=== PATIENT | male | born 1955 | race Caucasian/White ===

== ENCOUNTER 2019-08-03 08:21 | Day surgery (SDC) | payer BC ==
--- NOTE | 2019-07-24 10:02 | HP ---
HISTORY AND PHYSICAL: DATE OF ADMISSION: 08/03/19 [facility] DATE OF OFFICE VISIT: 07/23/19 ATTENDING PHYSICIAN: Dr. Beth Linda.* (DICTATED BY CHUCHO TAVERAS) PROCEDURE: Right wrist removal of accessory ossicle. CHIEF COMPLAINT: Right wrist pain. HISTORY OF PRESENT ILLNESS: Vu is a 63-year-old male, who started having wrist pain back in February. No specific trauma. He rates the pain as a 4/10. He has tried activity modification. He has tried bracing and physical therapy. He had a CT scan, which did show signs of tendinitis near the accessory ossicle. He has failed conservative treatment and has elected to proceed with surgery. He is scheduled to undergo right wrist removal of the accessory ossicle. This is scheduled on 08/03/[address] Linda. PAST MEDICAL HISTORY: Prostate cancer. PAST SURGICAL HISTORY: Knee arthroscopy, shoulder surgery, hernia repair, prostatectomy, and vasectomy. MEDICATIONS: 1. Depakote 500 mg. 2. Wellbutrin SR. ALLERGIES: No known drug allergies. FAMILY HISTORY: Lung cancer in father. SOCIAL HISTORY: Lives with his spouse. He consumes alcohol and denies tobacco use. REVIEW OF SYSTEMS: A complete 14-point review of systems was obtained. Other than HPI, all other systems are negative and noncontributory including negative for any prior problems with anesthesia. PHYSICAL EXAMINATION GENERAL: Awake, alert, and oriented, in no acute distress. HEENT: Head is normocephalic, atraumatic. NECK: Supple with no palpable lymph nodes. LUNGS: Clear to auscultation bilaterally. No wheezes, rales, or rhonchi. HEART: Regular rate and rhythm. S1, S2. No murmurs, rubs, or gallops. EXTREMITIES: Right upper extremity: There is swelling near the dorsal radial carpal joint as well as the third MP joint. He has decreased range of motion in the right wrist especially in flexion and extension. He has tenderness on the radial and volar aspect of the wrist. Sensation is intact to light touch distally. 2+ radial pulse. SKIN: Intact without rashes or lesions. IMPRESSION: Right wrist tendinitis from an accessory ossicle. PLAN/RECOMMENDATIONS: He is scheduled to undergo right wrist removal of accessory ossicle on 08/03/[address] Linda. A prescription for tramadol will be sent to the patient's pharmacy for postoperative pain management. He will follow up in the office in 10 to 14 days postoperatively. CHUCHO TAVERAS [id number]/[facility] #: [id number] MTDD
[~2019-08-03 08:21] MED LIST: Buffered Lidocaine 1% SYRIN* 1 ML/SYRINGE INTRADERM ONE; Lactated Ringers 1000 ML Bag* 1,000 ML IV SCH
[2019-08-03] MEDS ORDERED: Lidocaine 2% PF * 5 ML VIAL ONE (09:46)
[2019-08-03] MEDS ORDERED: Midazolam* 1 MG/ML 2 ML VIAL (2 MG) ONE (09:47)
[2019-08-03] MEDS ORDERED: Lidocaine 1% INJ* 10 MG/ML 30 ML SDV ONE (09:56)
[2019-08-03] MEDS ORDERED: Mepivacaine 2% MPF (20 MG/ML)* 20 ML MPF ONE (10:01)
[2019-08-03] MEDS ORDERED: Mepivacaine 1% (10 MG/ML)* 30 ML SDV ONE (10:10)
[2019-08-03] MEDS ORDERED: Lidocaine 2% PF* 10 ML AMP ONE (10:12)
[2019-08-03] MEDS ORDERED: Bupivacaine 0.5% SDV PF* 30ML VIAL ONE (10:34)
[2019-08-03 12:10] VITALS: BP 116/86
--- NOTE | 2019-08-03 14:45 | OP ---
DATE OF OPERATION: 08/03/19 [facility] DATE OF : 59 SURGEON: Beth Linda MD. FLIGHT DATA TECHNICIAN: CHUCHO Arita. ANESTHESIA: Block. PRE-OP DIAGNOSIS: Right wrist accessory ossicle. POST-OP DIAGNOSIS: Right wrist osteophyte. OPERATIVE PROCEDURE: Removal of right wrist ossicle. ESTIMATED BLOOD LOSS: Zero. TOURNIQUET TIME: About 30 minutes. INDICATION FOR PROCEDURE: Vu is a 63-year-old male who complains of pain in his right wrist. He has failed conservative treatment with cortisone injection. CT scan shows arthritis and also a loose accessory ossicle which is likely a broken osteophyte. This seems to be the source of his pain, so he presents for removal of the ossicle of the right wrist. DESCRIPTION OF PROCEDURE: The patient was brought to the operating room and was given a block anesthetic and placed in the supine position on the operating table with the tourniquet around his right forearm. The skin of his right upper extremity was prepped and draped in the usual sterile fashion. The upper extremity was exsanguinated and the tourniquet elevated to 250 mmHg. A longitudinal incision was made, centered between the base of the first metacarpal and the tip of the radial styloid. We dissected bluntly through the subcutaneous tissue. The radial artery and the first compartment tendons were retracted by the neurosurgical nurse practitioner Grace Maldonado, whose assistance was essential for safe completion of the case. There was a mobile ossicle underlying the tendons and the artery and this was freed up from soft tissue and removed and sent for pathology. The wound was irrigated and the skin edges reapproximated with 4-0 nylon suture after the CMC joint capsule was closed with 3-0 Vicryl suture. The wound was dressed with Xeroform, 4x4, Webril, and an Jodran wrap. The patient tolerated the procedure well and was brought to the recovery room in good condition. [id number]/[facility] #: [id number] [facility] CENTERMariana
== END 2019-08-03 12:04 | disposition home or self-care (01) ==
LOC: OREAST 08:21
PROVIDERS: ATTEND Orthopaedic Surgery
DX: M25.731 Osteophyte, right wrist (principal); Z85.46 Personal history of malignant neoplasm of prostate; F31.9 Bipolar disorder, unspecified; G89.18 Other acute postprocedural pain
CPT/HCPCS: 88304; 88311; J0670; J2001; J2250; J3490